=== PATIENT | female | born 1965 | race American Indian/Alaskan Native ===

== ENCOUNTER 2024-12-13 06:31 | Day surgery (SDC) | payer BC, SELFPAY | END 2024-12-13 14:41 | disposition home or self-care (01) | LOC: GI 06:31 | PROVIDERS: ATTENDING PHYSICIAN Internal Medicine | DX: D50.9 Iron deficiency anemia, unspecified (principal); K44.9 Diaphragmatic hernia without obstruction or gangrene; K31.89 Other diseases of stomach and duodenum; K64.9 Unspecified hemorrhoids; K29.50 Unspecified chronic gastritis without bleeding | CPT/HCPCS: 45378; 43239; 88305; 88342 ==

== ENCOUNTER → 2025-02-07 16:31 | Outpatient (REF) | payer BC, SELFPAY | LOC: RAD 16:31 | PROVIDERS: ATTENDING PHYSICIAN Internal Medicine; FAMILY PHYSICIAN Internal Medicine | DX: D50.9 Iron deficiency anemia, unspecified (principal); R10.30 Lower abdominal pain, unspecified; R11.0 Nausea | CPT/HCPCS: 74177; Q9967 ==